=== PATIENT | male | born 1960 | race African-American/Black ===

== ENCOUNTER 2017-03-30 06:47 | Day surgery (SDC) | payer OTHER ==
[2017-03-29 12:27] VITALS: BMI 26.2
[2017-03-30] MEDS ORDERED: ceFAZolin SODIUM 1 GM VIAL IVPB ONE (08:06)
--- NOTE | 2017-03-30 08:14 | HP ---
Satellite [facility] - Chief Complaint Chief Complaint: right shoulder pain - Past Medical History Allergies/Adverse Reactions: Allergies Allergy/AdvReac Type Severity Reaction Status Date / Time No Known Drug Allergies Allergy Verified 03/30/17 08:02 - Current Medications Current Medications: Home Medications Medication Instructions Recorded Albuterol Sulfate Inhaler - 1 inh IH ASDIR PRN 03/29/17 Oxycodone HCl/Acetaminophen 1 - 2 tab PO Q6H #50 tab MDD 8 03/30/17 [Percocet 5-325 mg Tablet -] Satellite Physical Exam - Physical Examination Vital Signs: Vital Signs Period Temp Pulse Resp BP Sys/Darnell Pulse Ox Last 24 Hr 97.6 F 69 18 115/63 100 General Appearance: Well Nourished, Well Developed, Alert & Oriented x3 ENT: Clear Lung: Normal air movement Heart: Regular rate & rhythm Extremities: Other (right shoulder- + ttp, decr rom, + empty can, + neer, + edmonds, nvi MRi + rct) Neurological: Intact, Alert, Oriented Satellite Impression/Plan - Impression/Plan Impression: right shoulder rct Operative Procedure: right shoulder arthroscopy with RCR, SAD Date to be Performed: 03/30/17
[2017-03-30] MEDS ORDERED: ROPIVACAINE HCL 0.5% 30ML VIAL ONE (08:17)
[2017-03-30] MEDS ORDERED: MIDAZOLAM HCL 2 MG/2 ML SINGLE DOSE VIAL ONE ×2 (08:19)
[2017-03-30] MEDS ORDERED: PROPOFOL 20 ML ONE ×2 (08:51)
[2017-03-30] MEDS ORDERED: ROCURONIUM BROMIDE 50 MG/5 ML VIAL ONE (08:52)
[2017-03-30] MEDS ORDERED: SUCCINYLCHOLINE CHLORIDE 200 MG/10 ML VIAL ONE (08:52)
[2017-03-30] MEDS ORDERED: oxyCODONE HCL 5 MG TABLET PO PRN (09:22)
[2017-03-30] MEDS ORDERED: PROMETHAZINE HCL 25 MG/1 ML VIAL IVPUSH PRN (09:22)
[2017-03-30] MEDS ORDERED: ONDANSETRON 4 MG/2 ML VIAL IVPUSH PRN (09:22)
[2017-03-30] MEDS ORDERED: ePHEDrine SULFATE 50 MG/1 ML AMPULE ONE (09:29)
[2017-03-30] MEDS ORDERED: LACTATED RINGERS SOLUTION 1,000 ML IV SCH (09:30)
--- NOTE | 2017-03-30 10:20 | OP ---
DATE OF OPERATION: 03/30/2017 PREOPERATIVE DIAGNOSIS: Right rotator cuff tear. POSTOPERATIVE DIAGNOSIS: Right rotator cuff tear. PROCEDURE: Right shoulder arthroscopy, debridement, and rotator cuff repair. SURGICAL ATTENDING: Basilio Lyle MD PANEL BUILDER: [employer] ANESTHESIA: Regional and general. CLOSURE: No. 2 FiberWire and two SwiveLock for rotator cuff, 3-0 nylon for skin. ESTIMATED BLOOD LOSS: Negligible. COMPLICATIONS: None. CONDITION: To recovery room in stable condition. DESCRIPTION OF PROCEDURE: Patient was taken to the operating room on March 30, 2017. Scalene block followed by general anesthesia was administered by the anesthesiologist. IV Kefzol was administered prophylactically prior to the case. Patient was placed in the beach-chair position with all prominences well padded. The right shoulder area was prepped and draped in the usual sterile fashion. A posterior portal was first made with 15 blade followed by a blunt trocar. A circumferential examination of the glenohumeral joint revealed the following: Intact glenoid and humeral head, articular cartilage, no loose bodies in the axillary pouch, intact labrum circumferentially, intact biceps and biceps anchor, intact subscapularis to its insertion. Looking superior, the rotator cuff was found to have on the surface crescent tear of the supraspinatus; the rest of the rotator cuff appeared to be intact. Fluid drained from the shoulder. Trocar was removed. The posterior trocar was redirected in the subacromial space. An accessory lateral portal was made using 15 blade followed by a blunt trocar. A bursectomy was performed. The undersurface of the acromion was burred, removing anterior giving humeral head. The coracoacromial ligament was identified and detached and further debrided anteriorly, as well. Soft tissue encasing the humeral head was debrided using the ArthroCare and the shaver exposing the rotator cuff tear, one small area was full thickness and the more expansile area it was high-grade. The partial thickness was easily debrided to expose the true rotator cuff tear beneath. Multiple traction sutures were placed in the rotator cuff using a Scorpio suture passer. Two SwiveLocks were used to repair the rotator cuff to the greater tuberosity achieving excellent repair. Prior to repair, the greater tuberosity was burred to stimulate some bleeding bone. The sutures were cut snug. The shoulder was copiously irrigated. The portals were closed with 3-0 nylon sterile pressure dressing followed by shoulder immobilizer. Patient was awakened from anesthesia and transferred to the recovery room in stable condition. No complications. Estimated blood loss negligible. Thao BELL/[id number]
[2017-03-30 10:49] VITALS: TEMP 98
[2017-03-30 12:37] VITALS: BP 115/62; PULSE 69
--- NOTE | 2017-04-05 15:17 | PATH ---
Surgical Pathology Report Patient Name: RAQUEL FLORES Med. Rec. #: [id number] /Age/Gender: 1960 (Age: 56) / M Account: [id number] Location: [facility] SURGICAL Taken: 03/30/2017 Received: 03/30/2017 Reported: 04/05/2017 Physicians: Basilio Lyle M.D. Specimen(s) Received SHAVINGS RIGHT SHOULDER Clinical History Right shoulder tear Final Diagnosis SHOULDER, RIGHT, ARTHROSCOPIC SHAVINGS: FIBROSYNOVIAL TISSUE AND SKELETAL MUSCLE. Electronically Signed Bozena Snell M.D. Gross Description Received in formalin, labeled "right shoulder shavings," is a 5.0 x 2.7 x 0.3 cm. aggregate of ivy-yellow soft tissue fragments. A commercial sales representative portion is submitted in one cassette. /03/30/2017 saudi/03/30/2017
== END 2017-03-30 12:37 | disposition home or self-care (01) ==
LOC: JASU-SURG 06:47
PROVIDERS: ATTEND Orthopaedic Surgery
PROC: 0RBJ4ZZ Excision of Right Shoulder Joint, Percutaneous Endoscopic Approach (ICD-10-PCS; principal; 2017-03-30 08:45)
PROC: 0LQ14ZZ Repair Right Shoulder Tendon, Percutaneous Endoscopic Approach (ICD-10-PCS; 2017-03-30 08:45)
DX: M75.101 Unspecified rotator cuff tear or rupture of right shoulder, not specified as traumatic (principal)
CPT/HCPCS: 88304-TC; 94760